=== PATIENT | male | born 1975 | race Caucasian/White ===

== ENCOUNTER 2024-01-25 08:07 | Outpatient (AMB) | payer OTHER, SELFPAY ==
--- NOTE | 2024-01-25 08:18 | MHC.PC.OV ---
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 as diabetes or are at increased risk for some diseases such as pneumonia. INFECTIOUS DISEASE SCREENING Screening for hepatitis C: all adults ages 18 to 79 should get a one-time test for hepatitis C. Screening for human immunodeficiency virus (HIV): all people ages 15 to 65 should get a one-time test for HIV. Depending on your lifestyle and medical history, you may need to be screened for infections such as syphilis, chlamydia, and other infections. LUNG CANCER SCREENING You should have an annual screening for lung cancer with low-dose computed tomography (LDCT) if: You are age 50 to 80 years AND You have a 20 pack-year smoking history AND You currently smoke or have quit within the past 15 years OSTEOPOROSIS SCREENING If you are age 50 to 64 and have risk factors for osteoporosis, you should discuss screening with your provider. Risk factors can include long-term steroid use, low body weight, smoking, heavy alcohol use, having a fracture after age 50, or a family history of hip fracture or osteoporosis. Osteoporosis PHYSICAL EXAM All adults should visit their provider from time to time, even if they are healthy. The purpose of these visits is to: Screen for diseases Assess risk of future medical problems Encourage a healthy lifestyle Update vaccinations and other preventive care services Maintain a relationship with a provider in case of an illness Your height, weight, and body mass index (BMI) should be checked at every exam. During your exam, your provider may ask you about: Depression and anxiety Diet and exercise Alcohol and tobacco use Safety, such as use of seat belts and smoke detectors Your medicines and risk for interactions PROSTATE CANCER SCREENING If you're 55 through 69 years old, before having the test, talk to your provider about the pros and cons of having a PSA test. Ask about: Whether screening decreases your chance of dying from prostate cancer. Whether there is any harm from prostate cancer screening, such as side effects from testing or overtreatment of cancer when discovered. Whether you have a higher risk of prostate cancer than others. If you are age 55 or younger, screening is not generally recommended. You should talk with your provider about if you have a higher risk for prostate cancer. Risk factors include: Having a family history of prostate cancer (especially a brother or father) Being If you choose to be tested, the PSA blood test is repeated over time (yearly or less often), though the best frequency is not known. Prostate examinations are no longer routinely done on men with no symptoms. Prostate cancer SKIN EXAM Your provider may check your skin for signs of skin cancer, especially if you're at high risk. People at high risk include those who have had skin cancer before, have close relatives with skin cancer, or have a weakened immune system. TESTICULAR EXAM The [place] Preventive Services Task Force (USPSTF) now recommends against performing testicular self-exams. Doing testicular self-exams has been shown to have little to no benefit.
[2024-01-25 08:23] VITALS: BP 128/86; PULSE 77; RESP 14; O2SAT 96; BMI 27.3
== END 2024-01-25 08:50 | disposition home or self-care (01) ==
PROVIDERS: PCP Nurse Practitioner Family; Visit Provider Nurse Practitioner Family
DX: Z23 Encounter for immunization (principal); Z00.00 Encounter for general adult medical examination without abnormal findings

== ENCOUNTER → 2024-01-25 08:07 | Outpatient (BNVA) | payer OTHER, SELFPAY | PROVIDERS: Visit Provider Nurse Practitioner Family | DX: Z00.00 Encounter for general adult medical examination without abnormal findings (principal); Z23 Encounter for immunization | CPT/HCPCS: 90471; 90715; 96127 ==

== ENCOUNTER 2024-01-25 09:11 | Outpatient (REF) | payer OTHER, SELFPAY ==
[2024-01-25 11:53] LABS: Estimated Average Glucose 111 mg/dL; Hemoglobin A1C 152.5157 umol/L; Hemoglobin A1c % 5.5 % (<6.0); Total Hemoglobin (HGBA1C) 4114.7919 umol/L
[2024-01-25 12:10] LABS: Alanine Aminotransferase 48 U/L (0-40); Albumin Level 4.7 g/dL (3.5-5.0); Alkaline Phosphatase 89 U/L (39-117); Anion Gap 12 (12-20); Aspartate Amino Transferase 32 U/L (5-37); Bilirubin Total 0.4 mg/dL (0.0-1.0); Blood Urea Nitrogen 16 mg/dL (9-16); Calcium 10.1 mg/dL (8.4-10.2); Carbon Dioxide 27 mmol/L (22-29); Chloride 105 mmol/L (96-108); Cholesterol 399 mg/dL (<200); Estimated Glomerular Filt Rate > 60; Glucose Random 101 mg/dL (60-115); HDL Cholesterol 45 mg/dL (>40); Potassium 4.6 mmol/L (3.3-5.1); Sodium 139 mmol/L (135-145); Total Protein 7.7 g/dL (6.5-8.0); Triglycerides 495 mg/dL (<150)
[2024-01-25 12:24] LABS: Creatinine Urine 180.25 mg/dL; Microalbum/Creatinine Ratio Ur 10.5 ug/mg cr (<30)
[2024-01-25 12:29] LABS: TSH reflex Free T4 1.08 uIU/mL (0.32-4.0)
[2024-02-01 19:58] LABS: PSA, Ultra Sensitive 0.71 ng/mL
== END 2024-01-25 09:12 | disposition home or self-care (01) ==
LOC: HO.WFDLDS 09:11
PROVIDERS: Visit Provider Nurse Practitioner Family
DX: Z00.00 Encounter for general adult medical examination without abnormal findings (principal); Z12.5 Encounter for screening for malignant neoplasm of prostate; Z13.1 Encounter for screening for diabetes mellitus
CPT/HCPCS: 36415; 80053; 80061; 82043; 82570; 83036; 84153; 84443

== ENCOUNTER 2024-09-21 13:51 | Outpatient (REF) | payer OTHER, SELFPAY ==
--- OUTSIDE RECORDS SUMMARY | 2024-09-21 13:55 | XMS_ITS | Clinical Summary ---
Author Organization [facility] Address [address] [place] [address] Care Team Providers Care Automatic Cigar Wrapper Tender Name Role Phone Kristi Donaldson ENVIRONMENTAL SCIENCE PROGRAM DIRECTOR Primary Care Provider [phone] Source Comments PLEASE NOTE, if this patient is a minor, it may be UNLAWFUL to discuss sensitive information that is contained in these records (such as FAMILY PLANNING, MENTAL HEALTH or SUBSTANCE ABUSE) with the minor patient's parent or other person without the patient's specific authorization.[facility] Allergies No known active allergies Medications cholecalciferol, vitamin D3, 2,000 unit capsuleIndicatio ns:Vitamin D deficiency Take 1 Cap by mouth once daily 90 Cap 3 02/22/2016 Active penicillin v potassium (VEETID) 500 mg tabletIndication s:Tonsillitis Take 1 Tab by mouth 3 (three) times daily 30 Tab 03/29/2017 Active Active Problems Problem Noted Date Diagnosed Date Hypertriglyceridemia 02/22/2016 Vitamin D deficiency 02/22/2016 Family History Medical History Relation Name Comments Hypertension Maternal Grandmother Alcohol/Drug Abuse Neg Relation Name Status Comments Maternal Grandmother Social History Tobacco Use Types Packs/Day Years Used Date Smoking Tobacco: Never Smokeless Tobacco: Never Alcohol Use Standard Drinks/Week Comments No 0 (1 standard drink = 0.6 oz pur e alcohol) Social Connections Answer Date Recorded Connectedness 0 11/25/2023 Financial Resource Strain Answer Date R ecorded Financial Resource Strain 0 2018 Stress Answer Date Recorded Stress 0 10/29/2018 Physical Activity Answer Date Recorded Physical Activity 0 10/29/2018 Food Insecurity Answer Date Recorded Food 0 12/01/2023 Transportation Needs Answer Date Record ed Transportation 0 10/29/2018 Housing Stability Answer Date Recorded Housing 0 10/29/2018 Safety and Environment Answer Date Peter rded Safety 0 10/29/2018 Utilities Answer Date Recorded Utilities 0 10/29/2018 Employment Answer Date Recorded Stress 0 11/25/2023 Sex and Gender Information Value Date Recorded Sex Assigned at Male 03/30/2017 8:51 AM PST Legal Sex Male 12:43 PM PDT Gender Identity Male 03/30/2017 8:51 AM PST Sexual Orientation Straight 03/30/2017 6: 42 AM PST 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 Not on file Not on file Not on file Last Filed Vital Signs Vital Sign Reading Time Taken Comments Blood Pressure 120/64 03/30/2017 9:41 AM EST Pulse 80 03/30/2017 9:41 AM EST Temperature 37.1 C (98.7 F) 03/30/2017 9:41 AM EST Respiratory Rate 20 03/30/2017 9:41 AM EST Oxygen Saturation 98% 03/29/2017 2:02 PM EST Inhaled Oxygen Concentration - - Weight 85.3 kg (188 lb) 03/30/2017 9:41 AM EST Height 177 cm (5' 9.69 ) 03/30/2017 9:41 AM EST Body Mass Index 27.22 03/30/2017 9:41 AM EST Plan of Treatment Not on file Insurance [facility] Care Teams Automatic Cigar Wrapper Tender Relationship Specialty Start Date End Date Kristi Donaldson FNP [address] [place] [address] PCP - General 09/28/18
--- OUTSIDE RECORDS SUMMARY | 2024-09-21 13:55 | XMS_ITS | Clinical Summary ---
Author Organization [facility] Address [address] [place] [address] Care Team Providers Care Cataloging Assistant Name Role Phone Unavailable Primary Care Provider Unavailabl e Social History Tobacco Use Types Packs/Day Years Used Date Smoking Tobacco: Never Assessed Sex and Gender Information Value Date Recorded Sex Assigned at Not on file Legal Sex Male 1:04 AM EST Gender Identity Not on file Sexual Orientation Not on file Plan of Treatment Health Maintenance Due Date Last Done Comments DTaP,Tdap,and Td Vaccines (1 - Tdap) 1996 Hepatitis B Vaccines (1 of 3 - 19+ 3-dose series) 1996 COVID-19 Vaccine (2023-2 5 season) 2023 Influenza Vaccine (#1) 2024 HIB Vaccines Aged Out No longer eligi ble based on patient's age to complete this topic HPV Vaccines Aged Out No longer eligi ble based on patient's age to complete this topic Hepatitis A Vaccines Aged Out No long er eligible based on patient's age to complete this topic IPV Vaccines Aged Out No longer eligi ble based on patient's age to complete this topic MMR Vaccines Aged Out No longer eligi ble based on patient's age to complete this topic Meningococcal ACWY Vaccine Aged Out N o longer eligible based on patient's age to complete this topic Meningococcal B Vaccine Aged Out No l onger eligible based on patient's age to complete this topic Pneumococcal Vaccine: Pediat rics (0 to 5 Years) and At-Risk Patients (6 to 49 Years) Aged Out No longer eligible b ased on patient's age to complete this topic RSV Immunization Patients Un andrés 20 months Aged Out No longer eligible b ased on patient's age to complete this topic Varicella Vaccines Aged Out No longer eligible based on patient's age to complete this topic
[2024-09-21 17:47] LABS: Alanine Aminotransferase 38 U/L (0-40); Albumin Level 4.7 g/dL (3.5-5.0); Alkaline Phosphatase 73 U/L (39-117); Anion Gap 13 (12-20); Aspartate Amino Transferase 31 U/L (5-37); Blood Urea Nitrogen 16 mg/dL (9-16); Calcium 9.3 mg/dL (8.4-10.2); Carbon Dioxide 25 mmol/L (22-29); Chloride 106 mmol/L (96-108); Cholesterol 410 mg/dL (<200); Estimated Glomerular Filt Rate > 60; HDL Cholesterol 48 mg/dL (>40); Potassium 4.2 mmol/L (3.3-5.1); Sodium 140 mmol/L (135-145); Total Protein 7.2 g/dL (6.5-8.0); Triglycerides 301 mg/dL (<150)
== END 2024-09-21 13:52 | disposition home or self-care (01) ==
LOC: HO.WFDLDS 13:51
PROVIDERS: Visit Provider Nurse Practitioner Family
DX: R74.8 Abnormal levels of other serum enzymes (principal); E78.5 Hyperlipidemia, unspecified
CPT/HCPCS: 36415; 80053; 80061

== ENCOUNTER 2024-09-24 12:33 | Outpatient (AMB) | payer OTHER, SELFPAY ==
--- NOTE | 2024-09-24 12:30 | A.OFFPC_ITS ---
Vital Signs 09/24/24 13:23 Height 5 ft 10 in Weight 191 lb BMI 27.4 Intake Visit Reasons: 6 month fu elevated LFTs, HLD Intake Note: Telehealth follow up to review labs Land Development Project Manager Required: No Allergies No Known Allergies Allergy (Verified 09/24/24 13:17) Medication List - Last Reconciled 09/24/24 by JESIKA Moore- atorvastatin 20 mg PO BEDTIME Tobacco use date assessed: 09/24/24 Dental Screening Dental Screen Date: 09/24/24 Did you have a dental visit in the last 12 months?: Yes Did you have a dental problem in the last 6 months where you did not have access to dental care?: No Was dental information given to patient?: Patient has dentist HPI HPI Comments History of Present Illness Details 49 y/o M with HLD, ^ LFTs, Fhx: MGM [place] Social: 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 - Non-adherent to atorvastatin 20 mg reg imen for hyperlipidemia. - Difficulties noted in establishing a c onsistent medication routine. - Unchanged lab results due to irregular atorvastatin intake. - Shifted from vegetarian to high meat i ntake diet in last 7 years. - Influence from girlfriend's diet noted , despite differing health outcomes. - did consult w/ nutrition x 1 - Normal liver enzyme levels on most rec ent labs. Review of Systems - Musculoskeletal: Denies muscle aches o r pains related to atorvastatin. - Digestive: Reports dietary change from vegetarian to increased red/fatty meat intake. - General: Reports ease in gaining weigh t compared to partner, but no significant weight increase noted recently. Results - Labs: See below Assessment and Plan 1. Hyperlipidemia - Re-prescribe atorvastatin 20 mg. - Monitor for side effects; continue if tolerated. - Reinforce importance of adherence for effective cholesterol management. - Schedule follow-up labs in six months. 2. Diet changes impacting cholesterol le vels - Recommend balanced diet with reduced r ed and fatty meat intake. - Encourage copping machine operator consultation. - Educate on dietary impact on lipid lev els. RTO 01/28/25 AT 0800 FOR CPE, LABS ORDERED TO BE DONE 1 WEEK BEFORE Telehealth Attestation Encounter conducted via multi-lingual video communication, documentation accurately reflects visit. The patient has been explained that this is an interactive (audio/video) telehealth encounter and what that consists of. The patient understands and wishes to proceed. Aula 7 platform was used. Total time spent caring for the patient today was 15 minutes. This includes time spent before the visit reviewing the chart, time spent during the visit, and time spent after the visit on documentation, reviewing laboratory results, diagnostic imaging, medications, performing a medically necessary evaluation, counseling on diagnoses, care coordination, ordering appropriate tests, ordering appropriate medications, review of tests performed by other providers, reporting test results with the patient, communication with other healthcare providers. 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 Current occupational exposures/hazards: No Cognitive needs: No Hearing needs: No Vision needs: No Questionnaire Thrive Questionnaire Date Thrive assessed: 09/21/24 I am a: Patient What is your living situation today?: I have a steady place to live Within the past 12 months, did the food you bought not last and you didn't have the money to get more?: I choose not to answer this question Within the past 12 months, did you worry whether your food would run out before you got money to buy more?: I choose not to answer this question Do you have trouble paying for medicines?: No Do you have trouble getting transportation to medical appointments?: No Do you have trouble paying your heating and electricity bill?: No Do you have trouble taking care of your child, family member or friend?: No Do you have trouble with day-to-day activities such as bathing, preparing meals, shopping, managing finances, etc.?: No Are you currently unemployed and looking for a job?: No Are you interested in more education?: Yes Please select the resources that you would like help with: None Currently or been in a relationship where the following occur: I choose not to answer THRIVE Score: 0 AUDIT C Alcohol Use Questionnaire (AUDIT-C) 1. How often do you have a drink containing alcohol?: Monthly or less 2. How many drinks containing alcohol do you have on a typical day when you are drinking?: 3 or 4 3. How often do you have six or more drinks on one occasion?: Never Total Score: 2 Score Reviewed/Action Taken: Yes ALONZO-7 AMB Questionnaire ALONZO-7 Date ALONZO - 7 assessed: 09/24/24 Feeling nervous, anxious, or on edge: 0 = Not at all Not being able to stop or control worryin = Not at all Worrying too much about different things: 0 = Not at all Trouble relaxin = Not at all Being so restless that it is hard to sit still: 0 = Not at all Becoming easily annoyed or irritable: 0 = Not at all Feeling afraid as if something awful might happen: 0 = Not at all Total ALONZO-7 score (0-4 normal; 5-9 mild; 10-14 moderate; 15-21 severe): 0 Source: Developed by Drs. Alden Haddad, Malissa Langston, Jericho Dunham and colleagues, with an educational simin from [employer]. Physical exam (Primary Care) Tobacco/Smoking Status: Tobacco use Status Tobacco use date assessed 09/24/24 09/24/24 12:32 Patient Tobacco Use Status Never used Tobacco 09/24/24 12:32 e-Cigarette/Vaping Use Never Used 09/24/24 12:32 Thrive Assessment: Date of Thrive Assessment Date Thrive assessed 09/21/24 09/24/24 12:32 Currently or been in a relationship where the following occur: I choose not to answer Telehealth Telehealth Telehealth Platform: Doximity Location of provider rendering services: practice address Location of patient: address on file Patient Identification confirmed using: Name, : Yes Telehealth method: voice only Patient verbally consented to treatment: Yes Patient verbally consented to billing insurance company: Yes Patient informed of any privacy concerns related to visit: Yes Minutes spent on Phone/Video with Pt.: 9 Results Reviewed Results Reviewed: 09/21/24 Laboratory Result Units Range Interpretation Provider Comments Sodium Level 140 mmol/L (135-145) Potassium Level 4.2 mmol/L (3.3-5.1) Chloride Level 106 mmol/L (96-108) Carbon Dioxide Level 25 mmol/L (22-29) Anion Gap 13 (12-20) Blood Urea Nitrogen 16 mg/dL (9-16) Creatinine 0.98 mg/dL (0.5-1.4) Estimated Creatinine Clearance Calc Not Reportable Estimat Glomerular Filtration Rate > 60 Fasting Glucose 96 mg/dL (60-99) Calcium Level 9.3 mg/dL (8.4-10.2) Delta Total Bilirubin 0.5 mg/dL (0.0-1.0) Aspartate Amino Transf (AST/SGOT) 31 U/L (5-37) Alanine Aminotransferase (ALT/SGPT) 38 U/L (0-40) Alkaline Phosphatase 73 U/L (39-117) Total Protein 7.2 g/dL (6.5-8.0) Albumin 4.7 g/dL (3.5-5.0) Triglycerides Level 301 mg/dL (<150) High Cholesterol Level 410 mg/dL (<200) High LDL Cholesterol, Calculated 302 mg/dL (<100) High HDL Cholesterol 48 mg/dL (>40) Coding Level of Care Code Tele Est Pt Level 2 (71379) Complex EM visit Add On G2211 Diagnoses Mixed hyperlipidemia E78.2 Hyperlipidemia type: mixed hyperlipidemia Elevated liver enzymes R74.8 Assessment & Plan Assessment & Plan (1) Hyperlipidemia: Code(s): E78.5 - Hyperlipidemia, unspecified Category: Medical Qualifiers: Hyperlipidemia type: mixed hyperlipidemia Qualified Code(s): E78.2 - Mixed hyperlipidemia (2) Elevated liver enzymes: Comment: resolved as of 09/2024 Code(s): R74.8 - Abnormal levels of other serum enzymes Category: Medical Plan . Orders: Orders Lipid Panel 6 Months E78.5 - Hyperlipidemia, unspecified, R74.8 - Abnormal levels of other serum enzymes, Z00.00 - Encounter for general adult medical examination without abnormal findings Prostate Specific Antigen Scr 6 Months E78.5 - Hyperlipidemia, unspecified, R74.8 - Abnormal levels of other serum enzymes, Z00.00 - Encounter for general adult medical examination without abnormal findings TSH reflex Free T4 6 Months E78.5 - Hyperlipidemia, unspecified, R74.8 - Abnormal levels of other serum enzymes, Z00.00 - Encounter for general adult medical examination without abnormal findings Comprehensive Met. Panel 6 Months E78.5 - Hyperlipidemia, unspecified, R74.8 - Abnormal levels of other serum enzymes, Z00.00 - Encounter for general adult medical examination without abnormal findings Microalbumin, Random (w Creat) 6 Months E78.5 - Hyperlipidemia, unspecified, R74.8 - Abnormal levels of other serum enzymes, Z00.00 - Encounter for general adult medical examination without abnormal findings Vitamin B12 and Folate 6 Months E78.5 - Hyperlipidemia, unspecified, R74.8 - Abnormal levels of other serum enzymes, Z00.00 - Encounter for general adult medical examination without abnormal findings Vitamin D 25-OH Total 6 Months E78.5 - Hyperlipidemia, unspecified, R74.8 - Abnormal levels of other serum enzymes, Z00.00 - Encounter for general adult medical examination without abnormal findings Medications: Refilled atorvastatin 20 mg PO BEDTIME 90 tabs 1RF
--- OUTSIDE RECORDS SUMMARY | 2024-09-24 13:16 | XMS_ITS | Clinical Summary ---
Author Organization [facility] Address [address] [place] [address] Care Team Providers Care Client Onboarding Analyst Name Role Phone Kristi Donaldson PAINT SPRAYER SANDBLASTER Primary Care Provider [phone] Source Comments PLEASE NOTE, if this patient [...] Plan of Treatment Not on file Insurance [facility] Care Teams Client Onboarding Analyst Relationship Specialty Start Date End Date Kristi Donaldson FNP [address] [place] [address] PCP - General 09/28/18
--- OUTSIDE RECORDS SUMMARY | 2024-09-24 13:16 | XMS_ITS | Clinical Summary ---
Author Organization [facility] Address [address] [place] [address] Care Team Providers Care Ledge Man Name Role Phone Unavailable Primary Care Provider [...] 1996 COVID-19 Vaccine (2023-2 5 season) 2023 Depression Screening 03/07/2024 Influenza Vaccine (#1) 2024 HIB Vaccines Aged [...]
[2024-09-24 13:23] VITALS: BMI 27.4
== END 2024-09-24 13:28 | disposition home or self-care (01) ==
LOC: HO.HMCFM 12:33
PROVIDERS: PCP Nurse Practitioner Family; Visit Provider Nurse Practitioner Family
DX: E78.2 Mixed hyperlipidemia (principal); R74.8 Abnormal levels of other serum enzymes

== ENCOUNTER 2025-01-09 10:08 | Outpatient (AMB) | payer OTHER, SELFPAY ==
--- NOTE | 2025-01-09 10:09 | A.OFFVIS_ITS ---
Vital Signs 01/09/25 10:10 Height 5 ft 10 in Weight 200 lb BMI 28.7 BP 138/82 Blood Pressure Location Rt brachial Position Sitting Pulse 76 Pulse Source Pulse Oximeter Pulse Oximetry (%) 96 Oxygen Delivery Method Room Air Intake Visit Reasons: [place] screening, R/S x1 Intake Note: New pt for initial colo screening. No FMHx. CC: Pt denies any GI sx or concerns at this time. No pertinent surgical or FMHx. [place] [employer] Required: No Accompanied by: Self / Same As Patient Allergies No Known Allergies Allergy (Verified 01/09/25 10:10) HPI HPI [place] screening, R/S x1: Details: 49 year old? male here today for pre colonoscopy screening.? Patient was sent to us by his PCP.? This is his first colonoscopy screening.? Patient denies any gastrointestinal symptoms in the past or at present.? Denies any family history of CRC.? Denies history of difficulty with sedation or anesthesia in the past.? Negative for history of sleep apnea.? Denies any history of cardiac, renal, pulmonary, or hepatic disease.?? No history of infectious? diseases like hepatitis A, B, C, HIV or tuberculosis.? 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 occupational exposures/hazards: No Cognitive needs: No Hearing needs: No Vision needs: No Review of Systems Const Denies weight gain and Denies weight loss ENT Reports no additional complaints, Denies dysphagia and Denies odynophagia Card Reports no additional complaints Resp Reports no additional complaints GI Denies abdominal pain, Denies belching, Denies melena, Denies bloating, Denies change in bowel habits, Denies dysphagia, Denies excessive flatus, Denies dyspepsia, Denies heartburn, Denies diarrhea, Denies loose stools, Denies nausea, Denies odynophagia and Denies vomiting Reports no additional complaints Musc Reports no additional complaints Neuro Reports no additional complaints Psych Reports no additional complaints Endo Reports no additional complaints Physical Exam Vital Signs: Last Vital Signs Pulse 76 01/09/25 10:10 BP 138/82 01/09/25 10:10 Pulse Ox 96 01/09/25 10:10 Oxygen Delivery Method Room Air 01/09/25 10:10 BMI result Body Mass Index 28.7 Const General: healthy appearing, no acute distress and well developed Nutritional Appearance: well nourished Orientation/consciousness: patient oriented x3 Resp Effort & Inspection: normal respiratory effort, able to speak in complete sentences, no tracheal deviation and symmetric chest movement Auscultation: clear to auscultation bilaterally Cardio Rate: regular rate GI Inspection: Yes normal to inspection and No distended Palpation (GI): Soft to palpation, not firm, nontender and No hepatosplenomegaly present Auscultation: normal bowel sounds General: Yes no CVA tenderness Back/Spine/Pelvis Back: no CVA tenderness Skin General skin exam: elasticity normal, turgor normal and dry skin Neuro General: patient oriented x3 Psych Appearance: grossly normal Mental Status: mental status grossly normal Assessment & Plan Assessment & Plan (1) Screen for colon cancer: Code(s): Z12.11 - Encounter for screening for malignant neoplasm of colon Plan Patient denies any GI, cardiac or respiratory symptoms.? Patient never had anesthesia in the past.? Denies any history of sleep apnea.? No history infectious diseases in the past or present.? Not on any anticoagulation therapy.? No family or personal history of colon cancer or polyps.? Patient denies melena, hematochezia, unintentional weight loss or ribbon like stools.? Discussed at length the pre-procedure,? prep, diet & medications as well as what to expect prior, during and after the procedure.?? Stressed the importance of good bowel prep.? Recommended the use of Vaseline or Calmoseptine OTC & baby wipes with bowel movements to promote comfort.? ?Patient verbalizes understanding and agrees to plan of care.? He was given the opportunity to ask questions and all questions answered.? We will see him after the procedure.? Orders: Referrals GI Procedure Notification Z12.11 - Encounter for screening for malignant neoplasm of colon Medications: New bisacodyl (Dulcolax (bisacodyl)) take 4 tabs at noon the day before your colonoscopy 20 mg (4 x 5 mg) PO ONCE 4 tabs 0RF constipation 1 day Z12.11 - Encounter for screening for malignant neoplasm of colon polyethylene glycol 3350 (Miralax) As directed by gastroenterology department at [facility] 238 grams PO ONCE 238 grams 0RF Z12.11 - Encounter for screening for malignant neoplasm of colon Coding Level of Care Code New Pt Level 3 (43747) Diagnoses Screen for colon cancer Z12.11 Time Spent (min) 40 Comment 30 minutes spent with patient and additional 10 minutes spent reviewing his records
[2025-01-09 10:10] VITALS: BP 138/82; PULSE 76; O2SAT 96; BMI 28.7
--- OUTSIDE RECORDS SUMMARY | 2025-01-09 11:40 | XMS_ITS | Clinical Summary ---
Author Organization [facility] it Address [address] [place] [address] Care Team Providers Care Fire Claims Adjuster Name Role Phone Unavailable Primary Care Provider [...] of 3 - 19+ 3-dose series) 1996 Depression Screening 03/07/2024 COVID-19 Vaccine (1 - 2023-2 5 season) 2024 Influenza Vaccine (#1) 2024 RSV Immunization Adult Patie nts (1 - 1-dose 75+ series) 2052 HIB Vaccines Aged Out No longer eligi [...]
--- OUTSIDE RECORDS SUMMARY | 2025-01-09 11:40 | XMS_ITS | Clinical Summary ---
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 Care Teams Extruder Operator Helper Relationship Specialty Start Date End Date Kristi Donaldson FNP [address] [place] [address] PCP - General 09/28/18
== END 2025-01-09 11:19 | disposition home or self-care (01) ==
PROVIDERS: PCP Nurse Practitioner Family; Visit Provider Nurse Practitioner Family
DX: Z01.818 Encounter for other preprocedural examination (principal); Z12.11 Encounter for screening for malignant neoplasm of colon
CPT/HCPCS: 99203

== ENCOUNTER → 2025-01-09 10:08 | Outpatient (BNVA) | payer OTHER, SELFPAY | PROVIDERS: PCP Nurse Practitioner Family; Visit Provider Nurse Practitioner Family | DX: Z01.818 Encounter for other preprocedural examination (principal) | CPT/HCPCS: 99202 ==